=== PATIENT | male | born 1945 | race Caucasian/White ===

== ENCOUNTER → 2023-12-31 09:04 | Outpatient (REF) | payer OTHER, SELFPAY | LOC: MRI 3T 09:04 | PROVIDERS: ATTENDING PHYSICIAN Internal Medicine; FAMILY PHYSICIAN Family Medicine | DX: K50.018 Crohn's disease of small intestine with other complication (principal) | CPT/HCPCS: 72197; 74183; A9575 ==

== ENCOUNTER → 2024-01-18 07:24 | Outpatient (REF) | payer OTHER, SELFPAY | LOC: MRI 3T 07:24 | PROVIDERS: ATTENDING PHYSICIAN Specialist; FAMILY PHYSICIAN Family Medicine | DX: M25.561 Pain in right knee (principal) | CPT/HCPCS: 73721 ==

== ENCOUNTER → 2024-01-29 06:14 | Day surgery (SDC) | payer OTHER, SELFPAY | LOC: GI 06:14 | PROVIDERS: ATTENDING PHYSICIAN Internal Medicine | DX: K50.012 Crohn's disease of small intestine with intestinal obstruction (principal); K64.9 Unspecified hemorrhoids; Z98.0 Intestinal bypass and anastomosis status; K52.3 Indeterminate colitis; D12.2 Benign neoplasm of ascending colon; K63.5 Polyp of colon | CPT/HCPCS: 45385; 45381; 45380; 88305 ==

== ENCOUNTER 2024-05-21 06:56 | Day surgery (SDC) | payer OTHER, SELFPAY ==
[2024-05-21 10:09] VITALS: BMI 24.4
[2024-05-21 10:10] VITALS: BP 145/84; BMI 24.4
[2024-05-21 12:01] VITALS: BP 126/77
[2024-05-21 12:07] VITALS: BP 117/64
[2024-05-21 12:15] VITALS: BP 134/84
[2024-05-21 12:30] VITALS: BP 144/78
== END 2024-05-21 12:40 | disposition home or self-care (01) ==
LOC: GI 06:56
PROVIDERS: ATTENDING PHYSICIAN Internal Medicine Gastroenterology
DX: D12.2 Benign neoplasm of ascending colon (principal); K63.89 Other specified diseases of intestine; K64.0 First degree hemorrhoids; Z98.0 Intestinal bypass and anastomosis status
CPT/HCPCS: 45390; 45385; 88305

== ENCOUNTER 2024-11-04 06:26 | Day surgery (SDC) | payer OTHER, SELFPAY | END 2024-11-04 10:57 | disposition home or self-care (01) | LOC: GI 06:26 | PROVIDERS: ATTENDING PHYSICIAN Internal Medicine | DX: Z12.11 Encounter for screening for malignant neoplasm of colon (principal); K64.8 Other hemorrhoids; K64.4 Residual hemorrhoidal skin tags; N40.0 Benign prostatic hyperplasia without lower urinary tract symptoms; K63.2 Fistula of intestine; K52.9 Noninfective gastroenteritis and colitis, unspecified; D12.2 Benign neoplasm of ascending colon; K63.89 Other specified diseases of intestine; Z98.0 Intestinal bypass and anastomosis status; Z98.890 Other specified postprocedural states; Z86.0101 Personal history of adenomatous and serrated colon polyps | CPT/HCPCS: 45380; 88305; 88342 ==